=== PATIENT | male | born 1995 | race Caucasian/White ===

== ENCOUNTER 2019-10-12 21:23 | Emergency (ER) | payer BC, SELFPAY ==
[2019-10-12 21:27] VITALS: BP 136/100; PULSE 100; RESP 14; TEMP 37.1; O2SAT 95
--- NOTE | 2019-10-12 21:35 | ED.GENADUL_ITS ---
Discharge Plan Disposition Patient Disposition: HOME Condition: Stable Discharge Details Chief Complaint: Laceration Clinical Impression: Laceration of thumb, left ED Provider: Flaquito Mas Home Meds and New Rx's Prescriptions: No Action epinephrine [EpiPen 2-Brendan] 0.3 MG/0.3 ML auto-injector 0.3 mg IM ONCE Qty: 1 RF: 1 Discharge Instructions Instructions: Laceration (ED) Additional Instructions: Tetanus was updated this evening. Laceration is an avulsion in nature, unable to repair with sutures. Leave the initial dressing on for the next 48 hours, after that time you may remove the outer dressing, the inner dressing will likely be adhered to your thumb. Keep the area clean and dry, you may apply antibiotic ointment and nonstick dressing. Please watch for new or worsening symptoms and return to the ER for any concerns Medical Decision Making <HARRY Lock - Last Filed: 10/12/19 22:09> 24-year-old gentleman presents with a avulsion laceration. Bleeding is controlled. Neuro, vascular, tendon intact. No indication for x-ray. We were able to determine his last tetanus shot was 2011. We will update tetanus today. Offered but declined. Wound was thoroughly cleaned and irrigated. Xeroform dressing applied. Bleeding controlled. Patient has no additional questions or concerns and is comfortable discharge. Case and disposition discussed with Dr. Craft. Please see his note <Jacky Craft MD - Last Filed: 10/12/19 21:51> Patient seen and evaluated by me. Patient discussed with HARRY Mas. Agree with note and plan as per HARRY Mas. HPI <HARRY Lock - Last Filed: 10/12/19 22:09> General Mode of arrival: ambulatory . Date/Time Provider Initiated Documentation: 10/12/19 21:30 . Limitations to Documentation: no limitations . Information obtained by: patient . HPI Narrative: This is a 24-year-old gentleman, [id number], who was cutting vegetables and accidentally cut his left thumb with a knife. This occurred just prior to arrival. Denies any other injury. Reports the pain is moderate. Denies numbness, tingling, weakness. Patient does not know the exact date of his last tetanus shot but believes he is up-to-date. Related Data Home Medications Medication Instructions Recorded Confirmed epinephrine [EpiPen 2-Brendan] 0.3 mg IM ONCE #1 pack 03/11/13 10/12/19 Allergies Allergy/AdvReac Type Severity Reaction Status Date / Time tree nut Allergy Severe Anaphylaxsi Unverified 10/12/19 21:35 s General Stated Complaint: Laceration PALLAVI: 4 Review of Systems <HARRY Lock - Last Filed: 10/12/19 22:09> Constitutional Constitutional: Denies weakness Gastrointestinal Gastrointestinal: Denies nausea Musculoskeletal Musculoskeletal: Denies arthralgias, Denies numbness and Denies tingling Neurologic Neurologic: Denies numbness, Denies tingling and Denies weakness PFSH <HARRY Lock - Last Filed: 10/12/19 22:09> Surgical History Tonsillectomy Summer 2013 Social History Smoking/Tobacco Use Status: Never Alcohol Intake: current Drug use: Never Substance use type: does not use Do you feel safe at home: Yes Do you feel safe in your relationship?: Yes Exam <HARRY Lock - Last Filed: 10/12/19 22:09> Extrem Left upper extremity: hand Details: abnormal to inspection (The laceration does involve the distal nail), neurosensory exam normal, tendon exam normal, vascular exam Details: radial pulse present and normal capillary refill, normal ROM of fingers and laceration (Left distal thumb, 1 cm avulsion laceration) Course <HARRY Lock - Last Filed: 10/12/19 22:09> Vital Signs Vital signs: Vital Signs Temperature 37.1 C 10/12/19 21:27 Pulse 100 H 10/12/19 21:27 Respiratory Rate 14 10/12/19 21:27 Blood Pressure 136/100 H 10/12/19 21:27 Pulse Oximetry 95 10/12/19 21:27 Temperature 37.1 C 10/12/19 21:27 Temperature Source Skin 10/12/19 21:27 Pulse 100 H 10/12/19 21:27 Respiratory Rate 14 10/12/19 21:27 Blood Pressure 136/100 H 10/12/19 21:27 Blood Pressure Position Sitting 10/12/19 21:27 Pulse Oximetry 95 10/12/19 21:27 Oxygen Delivery Method Room Air 10/12/19 21:27 Oxygen Flow Rate 0 10/12/19 21:27 Pain Level 3 10/12/19 21:27
== END 2019-10-12 22:10 | disposition home or self-care (01) ==
PROVIDERS: Emergency Provider Physician Assistant
DX: S61.112A Laceration without foreign body of left thumb with damage to nail, initial encounter (principal); W26.0XXA Contact with knife, initial encounter; Y93.G1 Activity, food preparation and clean up
CPT/HCPCS: 90471; 99284; 99283

== ENCOUNTER 2023-05-14 12:28 | Day surgery (SDC) | payer BC, SELFPAY ==
[2023-05-14] VITALS (8 sets, daily range): BP systolic 100–130; BP diastolic 62–98; PULSE 62–90; RESP 15–21; TEMP 36.2–37; O2SAT 94–99; BMI 38.1
[2023-05-14] MEDS: Lactated Ringers 1,000 ML 80 ML IV (13:25)
--- NOTE | 2023-05-14 13:36 | HPE_ITS ---
Assessment and Plan Assessment and plan (1) Cubital tunnel syndrome on right: Status: Acute (2) Right carpal tunnel syndrome: Status: Acute Assessment and plan: Robert is a 28-year-old who has cubital tunnel and carpal tunnel syndrome on the right side. He is here today for decompression of both. I reviewed the risk of the procedure to include bleeding, infection, pain, stiffness, continued symptoms, damage to nerves and vessels, damage to muscle and tendons, recurrent instability, need for repeat procedures. Despite these risk, he elects to proceed. History of Present Illness History of Present Illness Chief Complaint: Right Carpal and Cubital Tunnel Syndrome Narrative: Jose Luis is a 28-year-old who has a history of carpal tunnel syndrome on the right side along with symptoms of cubital tunnel with nerve subluxation. Please see the previous office note for complete detailed history. He has exhausted nonoperative options and is here today for carpal tunnel release as well as cubital tunnel decompression with nerve transposition. He has no recent illness. He has no chest pain or shortness of breath. He has no significant medical history. Review of Systems All systems reviewed & are unremarkable except as noted in HPI and below PFSH All Active Problems Cubital tunnel syndrome on right (Acute) Right carpal tunnel syndrome (Acute) Medical History Testicular mass (10/30/12) Surgical History [place] teeth extracted History of carpal tunnel surgery of left wrist (04/18/15) Tonsillectomy Summer 2013 Social History Smoking/Tobacco Use Status: Never Smoking risk assessment performed?: Yes Alcohol Intake: current Alcohol Intake frequency: a few times a week Alcohol type: hard liquor Drug use: Never Substance use type: does not use Details: alcohol: t-4, couple Housing: house Do you feel safe at home: Yes Do you feel safe in your relationship?: Yes Additional Social history: unable assess privately Meds Allergies and Home Medications Allergies Allergy/AdvReac Type Severity Reaction Status Date / Time tree nut Allergy Severe Anaphylaxsi Unverified 05/14/23 12:55 s Home Medications Medication Instructions Recorded Confirmed Type Unknown [No Known Home Meds] 05/13/23 05/13/23 History Exam Resp Effort & Inspection: normal respiratory effort Auscultation: clear to auscultation bilaterally Cardio Rate: regular rate Rhythm: regular rhythm Results Last Vital Signs Temp 37.0 C 05/14/23 13:01 Pulse 82 05/14/23 13:01 Resp 15 05/14/23 13:01 BP 130/84 05/14/23 13:01 Pulse Ox 96 05/14/23 13:01
--- NOTE | 2023-05-14 13:51 | ANES.PREOP_ITS ---
General Info Date of Service Date Performed: 05/14/23 Height: 5 ft 10 in Weight: 120.5 kg Body Mass Index (BMI): 38.1 Surgical Procedure: Operation Date: 05/14/23 14:40 Proposed Procedure Side Surgeon p Wrist ECTR Right Ameya Abrams MD s Cubital Tunnel Decompression w/Anterior Transposition Right Ameya Abrams MD Meds Allergies and Home Medications Allergies Allergy/AdvReac Type Severity Reaction Status Date / Time tree nut Allergy Severe Anaphylaxsi Unverified 05/14/23 12:55 s Home Medication Medication Instructions Recorded Unknown [No Known Home Meds] 05/13/23 Current Visit Medications: Current Medications Generic Name Dose Route Start Last Admin Trade Name Freq PRN Reason Stop Dose Admin Ringer's Solution 1,000 mls @ 80 mls/hr 05/14/23 06:00 05/14/23 13:25 IV 06/12/23 23:59 80 mls/hr INFUSION FELIX Administration Cefazolin Sodium 3,000 mg/ 100 mls @ 200 mls/hr 05/14/23 06:00 Sodium Chloride IV 05/14/23 16:00 PREOP FELIX IV Miscellaneous Supplies 1 each 05/14/23 06:00 Iv Access IV 06/12/23 23:59 DIRECTED FELIX Sodium Chloride 0 ml 05/14/23 06:00 Normal Saline Flush 10 Ml Syr IV 06/12/23 23:59 PRN PRN Sodium Chloride 0 ml 05/14/23 06:00 Normal Saline 10 Ml Vial IJ 06/12/23 23:59 DIRECTED PRN Sterile Water 0 ml 05/14/23 06:00 Water,Injection,Sterile 10 Ml Vial IJ 06/12/23 23:59 DIRECTED PRN PFSH Active Problems Active Problems: Problem Status Onset Code Cubital tunnel syndrome on right G56.21 Right carpal tunnel syndrome G56.01 Medical History Medical History Testicular mass (10/30/12) Medical History Comments:: pt. reports when he had his tonsils out he woke up earlier than expected and pulled tubes out of throat and needed cauterizing for bleeding and was painful Surgical History Surgical History [place] teeth extracted History of carpal tunnel surgery of left wrist (04/18/15) Tonsillectomy Summer 2013 Tobacco Smoking/Tobacco Use Status: Never Alcohol Alcohol Intake: current Alcohol intake frequency: a few times a week Alcohol type: hard liquor Substance Use Substance use: Never Substance use type: does not use Details: alcohol: t-4, couple Vital Signs and Lab Results Vital Signs Most Recent Vital Signs in EMR: Most Recent Vital Signs Temp Pulse Resp BP Pulse Ox 37.0 C 82 15 130/84 96 05/14/23 13:01 05/14/23 13:01 05/14/23 13:01 05/14/23 13:01 05/14/23 13:01 Lab Results Blood Type / Crossmatch: No Data to Display Complete Blood Count: No Data to Display Complete Metabolic Panel: No Data to Display Liver Function Panel: No Data to Display Coagulation Panel: No Data to Display Cardiac Panel: No Data to Display Arterial Blood Gas: No Data to Display Venous Blood Gas: No Data to Display Pancreas Panel: 2 No Data to Display Thyroid Panel: No Data to Display Infectious Disease: No Data to Display Blood Cultures: No Data to Display Toxicology Panel: No Data to Display Anesthesia Assessment and Plan Anesthesia History Personal History: Other (Woke up during T&A) Family History: No Family History of Anesthesia Complications Exercise Tolerance Exercise Tolerance: Metabolic Equivalents>4 Pertinent Negatives Pertinent Negatives: No Symptoms of GERD Cardiac & Pulmonary Exam Cardiac Exam: Normal S1/S2 Heart Sounds Pulmonary Exam: Clear Bilateral Breath Sounds Implantable Cardiac Device Does patient have a Pacemaker or an ICD?: No Airway Exam Known Difficult Airway: No Mallampati Class: 2 Mouth Opening: Normal (> 3cm) Thyromental Distance: Greater than 3 cm Neck Range of Motion: Full ROM Neck Circumference: Normal Teeth Condition: Normal Dentition ASA Classification ASA Score: ASA 2 Emergency Case?: No NPO Status NPO Status: NPO Clears >2 hours, Solids >8 hours Anesthesia Plan Resuscitation Status: Full Code Anesthesia Technique: General Anesthesia Airway Planned: LMA Monitors Used: Standard Monitors
[2023-05-14] MEDS: ceFAZolin 3,000 MG in Normal Saline 100 ML 200 MG IV (15:09)
--- NOTE | 2023-05-14 15:26 | W.PM.DSUDISC ---
Date of service: 05/14/23 Time of Service: 15:26 Discharge Plan Disposition Patient Disposition: Home Condition: Good Discharge Details Reason For Visit: R ECTR/cubital tunnel release Attending Provider: Ameya Abrams Primary Care Provider: SAADIA JACK Home Meds and New Rx's Prescriptions: New acetaminophen 500 mg tablet 1,000 mg PO TID Qty: 90 0RF hydrocodone-acetaminophen 5-325 mg tablet 1 tab PO Q6H PRN (Reason: pain) Qty: 6 0RF ibuprofen 600 mg tablet 600 mg PO TID PRN (Reason: pain) Qty: 90 0RF Discharge Instructions Additional Instructions: Cubital Tunnel Decompression Discharge Instructions Activity: You should stay in the sling for the first 2 weeks. You may come out of the sling for gentle motion and hygiene but should largely remain in the sling to allow the incision site to heal. Gentle motion of the elbow, hand, wrist, and fingers is okay and encouraged after the first few days, but no repetitive activites nor heavy lifting. You may apply ice. Medications: - You should take Tylenol and Ibuprofen around the clock. - You have been prescribed Hydrocodone for breakthrough pain. Dressings: - The initial surgical dressing should stay in place for 3 days. It may then be removed and kept clean and dry. You should cover with a light gauze dressing. - You may shower after 3 days and get the wound wet. Follow-up: 10 days Stand Alone Forms: Jose Alberto Wu Tunnel Release Referrals: Ameya Abrams MD [ [facility] STAFF PHYSICIAN] - Equipment/Supplies: Sling Activity:: Elevate Remove Dressings/Wound Care:: 72 hours Shower/Bathe:: 72 hours Diet:: As Tolerated Discharge Orders Discharge Orders: Discharge Order (Routine); Ordered 05/14/23 Ordered By: Willian Stack DS: Diagnosis Discharge Diagnosis (1) Cubital tunnel syndrome on right: Status: Acute (2) Right carpal tunnel syndrome: Status: Acute
[2023-05-14] MEDS: Lidocaine 1% Multi-Dose W/EPI 1/100,000 50 ML VIAL (15:36)
--- NOTE | 2023-05-14 16:52 | W.ANESPOSTOP ---
Postoperative Evaluation Date, Time and Location Date Performed: 05/14/23 Time Performed: 16:52 Patient Location: Day Surgery Unit Vital Signs Most Recent Imported Vital Signs: Most Recent Vital Signs Temp Pulse Resp BP Pulse Ox 36.2 C L 69 16 119/84 94 05/14/23 16:45 05/14/23 16:45 05/14/23 16:45 05/14/23 16:45 05/14/23 16:45 Pain Score Most Recent Pain Score: Most Recent Pain Score Pain Level 0 05/14/23 16:45 Assessment Mental Status: Awake (Alert & Oriented to Patient Baseline) Airway and Respiratory Function: Patent airway with normal (patient baseline) respiratory exam Cardiovascular Function: Hemodynamically Stable Hydration Status: Adequately Hydrated Nausea & Vomiting: No Nausea or Vomiting Pain: Pt. Denies Any Pain Peripheral Nerve Block: Patient did not receive a nerve block
--- NOTE | 2023-05-14 17:31 | W.PM.OP ---
Date of service: 05/14/23 Time of Service: 15:00 Operative Note Operative Note DATE OF PROCEDURE: 05/14/23 PRE-OP DIAGNOSIS: Right Carpal Tunnel and Right Cubital Tunnel Syndrome with Ulnar Nerve Subluxation POST-OP DIAGNOSIS: same PROCEDURE: Right Endoscopic Carpal Tunnel Release and Right Cubital Tunnel Decompression with Anterior Subcutaneous Transposition SURGEON: Ameya Abrams ANESTHESIA TYPE: General LMA/ETT Refer to Anesthesia Record ESTIMATED BLOOD LOSS: 5 PATHOLOGY: none sent TOURNIQUET TIME: 28 COMPLICATIONS: None Patient was transported to: PACU Patient's condition: stable Indications: Jose Luis is a 28 year old male who has had symptoms of carpal and cubital tunnel syndrome. Nonoperative treatment options had been trialed. Given failure of nonoperative treatments and persistent symptoms, I offered operative intervention. I reviewed the technical details of a carpal tunnel release and cubital tunnel decompression with possible anterior subcutaneous transposition. I reviewed the risk of the procedure to include bleeding, infection, pain, stiffness, nerve instability, damage to superficial nerves, persistent symptoms, and incomplete release. Despite these risks, the patient elected to proceed. Findings: The carpal tunnel was release with a standard endoscopic technique without difficulty and excellent visualization. There was an obviously dislocating ulnar nerve The ulnar nerve was release from the first motor branch distally through the [place] proximally. An anterior subcutaneous transposition was performed. Procedure Description: Jose Luis was greeted in the preoperative holding area where the correct side was identified and marked. The consent was reviewed with the patient and signed. The history and physical was updated. All questions were answered. He was taken back to the operating room. The patient was placed into the supine position on the operating room table with the right arm on an arm board. A nonsterile tourniquet was placed high onto the arm, into the axilla. All bony prominences were well padded. Prophylactic antibiotics in the form of Cefazolin were administered. The right arm was then prepped with Chloraprep and draped in a standard fashion with stockinette and extremity drape. A timeout to confirm correct identity, side and site, procedure, allergies, anesthesia, and medical concerns was performed. The surgical site was marked in the volar wrist creases in line with the radial border of the fourth ray. This area was anesthetized with approximately 6cc of 1% Lidocaine with Epinephrine. The surgical site about the medial elbow was drawn on the skin just posterior to the medial epicondyle borders. The planned surgical field was anesthetized with 1% Lidocaine with Epinephrine. The limb was then exsanguinated with an Esmarch. Starting with the carpal tunnel, the skin was incised with a 15 blade, approximately 1cm. The skin only was cut and the deeper tissue was dissected bluntly with a tenotomy scissor, avoiding passing nerve and venous structures. The fascia was penetrated and opened bluntly. A two-prong skin hook was placed under this proximal fascial edge. A series of hamate finders were used to identify and dilate the carpal tunnel. Synovial elevator was used to free synovial attachments to the underside of the transverse carpal ligament. My thumb was kept in the palm to meredith the distal extent of the carpal tunnel and correctly position the hand. The Microaire endoscope was inserted without difficulty and without resistance. Excellent visualization showed horizontally running fibers of the transverse carpal ligament (TCL). The distal extent of the TCL was visualized and the end of the scope palpated with the thumb. The blade was elevated and withdrawn from distal to proximal. The TCL was split into two flaps. The endoscope was reinserted to confirm complete release and any remnant ligament was incised. The scope was withdrawn and the proximal aspect of the carpal tunnel was grossly inspected and appeared release with the median nerve visible. The antebrachial fascia at the level of the wrist was then freed from the overlying skin and then the underlying median nerve with blunt dissection. This was transected longitudinally for about 3cm proximal to the wrist incision. The wound was then irrigated with easy flow of irrigant distally and proximally. The incision was closed with a single 4-0 Nylon suture. Attention was then turned to the cubital tunnel release. The skin of the medial elbow was incised only with the elbow in some flexion and on a bump. The deep tissue and subcutaneous fat was dissected with a tenotomy scissors trying to protect any branches of the medial antebrachial cutaneous nerve. Any branches that were identified were retracted out of the way. The ulnar nerve was palpated and identified. A small window into the cubital tunnel, sheath overlying the nerve, was created and the nerve was able to be palpated with the [place]. A Metzenbaum scissor was then used to open up the sheath starting with Flores's ligament. I then worked distal over the ulnar nerve releasing any constraints against the nerve all the way to the fascia of the FCU muscle belly. This muscle belly was bluntly all the way down to the first motor branch of the ulnar nerve and the overlying fascia was incised. Likewise starting there at the medial epicondyle, I proceeded to work proximally to release any constraints over the ulnar nerve. This was taken all the way to the arcade of [place]. The medial intermuscular septum was also palpated and any sharp edges against the ulnar nerve were resected and released. After fully releasing the nerve it was inspected visually. I was also able to palpate the nerve fully and reach one finger up into the proximal and distal aspects to make sure there were no constraints against the nerve. A freer elevator was also used to slide easily against the ulnar nerve without any points of constriction. A vessel loop was placed around the nerve for full, circumferential debridement. This allowed me to move the nerve anteriorly. Once the nerve was fully freed the proximal and distal aspects of the nerve were inspected to make sure there is no points of compression. There is a dense thick fatty layer overlying the medial condyle anteriorly which was then mobilized based on a flap from the point of the medial condyle. This was raised and the nerve was translated anteriorly. This tissue was then sewed to the overlying dermis with a #2-0 Vicryl. The nerve is resting this tissue and did not have any other points of compression. I was able to freely pass a freer up and down the nerve without any restriction points. The tourniquet was then deflated. Any areas of bleeding were cauterized with bipolar electrocautery. The wound was thoroughly irrigated. The deep tissue was closed with a 3-0 Vicryl. The skin was closed with a 4-0 nylon. The wounds were dressed with Xeroform, 4 x 4's, ABD, Kerlix and an Mike wrap. Jose Luis was placed into a sling. Jose Luis was transferred back to the PACU in a stable condition.
== END 2023-05-14 17:34 | disposition home or self-care (01) ==
PROVIDERS: PCP Internal Medicine; Visit Provider Student in an Organized Health Care Education/Training Program
PROC: 01N54ZZ Release Median Nerve, Percutaneous Endoscopic Approach (ICD-10-PCS; CPT 29848; principal; 2023-05-14 14:30)
PROC: (CPT 64718; 2023-05-14 14:30)
DX: G56.21 Lesion of ulnar nerve, right upper limb (principal); G56.01 Carpal tunnel syndrome, right upper limb
CPT/HCPCS: 64718; 29848; J0690; J1100; J1885; J2250; J2405; J2704; J3010